=== PATIENT | male | born 1940 | race Caucasian/White ===

== ENCOUNTER 2020-01-02 03:23 | Emergency (ER) | payer MEDICARE ==
[~2020-01-02] VITALS: Ht 177.8 cm; Wt 107.0 kg
[~2020-01-02 03:23] MED LIST: CALC-793 PO; COU5T PO; ENOX100D5 SQ; FURO40TA4 PO; LOSA25TA96 PO; MAGN400C PO; METO-539 PO; MULT-1179 PO; NITR0.4T51 SL; OMEG500C3 PO; POTA-82 PO; ZAR5T PO; glucosamine
[2020-01-02] MEDS ORDERED: ASPI-1265 PO (03:46)
[2020-01-02] MEDS ORDERED: DIGO125T PO (03:46)
[2020-01-02] MEDS ORDERED: SYN0.088T PO (03:48)
[2020-01-02] MEDS ORDERED: normal saline 1000ML IV soln IVB ONE ×3 (03:50→05:45)
[2020-01-02] MEDS ORDERED: digoxin 250mcg/ml 2ml ampule IV ONE (03:50)
[2020-01-02] MEDS ORDERED: LIDOcaine 2% 10ml TOPICAL JELLY (Urojet) MM ONE (03:55)
--- NOTE | 2020-01-02 03:56 | NUR ---
DR. JOHN REQUESTS SERRATO CATHETER TO BE REPLACED. ORDERS TO STOP TO DOBUTAMINE INFUSING FROM [facility]SPORT. BOLUS OF 2000 ML ORDERED. ALSOR REQUEST TO CALL [facility] ER TO SEE IF KAYEXALATE GIVEN HE HAS SPECIFICALLY REQUESTED THIS OF THEIR TRANSFERING MD. NO HISTORY IN CHART OF THIS BEING GIVEN. PT IS ORIENTED AND APPROPRIATE.
[2020-01-02] MEDS ORDERED: dextrose 50%-water 50ml dispensing syringe IV ONE (04:05)
[2020-01-02 04:06] LABS: BASOPHILS % (AUTO) 0.2 % (0-1); EOSINOPHILS # (AUTO) 0.4 X10'3 (0-0.9); EOSINOPHILS % (AUTO) 3.4 % (0-6); HEMATOCRIT 47.4 % (42.0-52.0); HEMOGLOBIN 15.5 g/dl (14.0-17.9); LYMPHOCYTES # (AUTO) 0.2 X10'3 (1.1-4.8); LYMPHOCYTES % (AUTO) 1.7 % (21-51); MEAN CORPUSCULAR HEMOGLOBIN 30.9 PG (27.0-31.0); MEAN CORPUSCULAR HGB CONC 32.7 g/dL (33.0-36.5); MEAN CORPUSCULAR VOLUME 94.7 FL (78-98); MEAN PLATELET VOLUME 9.2 FL (7.4-10.4); MONOCYTES # (AUTO) 0.3 X10'3 (0-0.9); MONOCYTES % (AUTO) 3.1 % (2-12); NEUTROPHILS # (AUTO) 9.7 X10'3 (1.8-7.7); NEUTROPHILS % (AUTO) 91.6 % (42-75); PLATELET COUNT 110 X10'3 (140-440); RED CELL DISTRIBUTION WIDTH 16.7 % (11.5-14.5); WHITE BLOOD COUNT 10.6 X10'3 (4.5-11.0)
[2020-01-02 04:14] LABS: ALANINE AMINOTRANSFERASE 10 U/L (12-78); ALBUMIN 2.8 G/DL (3.4-5.0); ALKALINE PHOSPHATASE 73 IU/L (46-116); ANION GAP 14 (8-16); ASPARTATE AMINO TRANSFERASE 82 U/L (10-37); BILIRUBIN,TOTAL 6.4 MG/DL (0.1-1.0); BLOOD UREA NITROGEN 72 MG/DL (7-18); BUN/CREATININE RATIO 19.7 (5.4-32.0); CHLORIDE 99 MMOL/L (99-107); CREATININE 3.65 MG/DL (0.60-1.10); GLUCOSE 80 MG/DL (70-104); POTASSIUM 5.8 MMOL/L (3.5-5.1); SODIUM 134 MMOL/L (135-145); TOTAL CARBON DIOXIDE 20.9 MMOL/L (24-32); eGFR 16 ML/MIN
[2020-01-02] MEDS: sodium polystyrene sulfonate 15gm/60ml oral suspension PO ONE ×2 (04:15→04:46)
[2020-01-02 04:16] LABS: MAGNESIUM 2.6 MG/DL (1.5-2.4)
[2020-01-02] MEDS ORDERED: ondansetron/PF 4mg/2ml inj IV ONE (04:20)
[2020-01-02 04:30] LABS: CREATINE KINASE 678 U/L (39-308)
[2020-01-02 04:33] LABS: ANISOCYTOSIS 1+; PLATELET ESTIMATE DECREASED; TOTAL CELLS COUNTED 100
[2020-01-02 04:34] LABS: ALBUMIN/GLOBULIN RATIO 0.7 (1.1-1.5); TOTAL PROTEIN 6.9 G/DL (6.4-8.2)
--- NOTE | 2020-01-02 04:36 | NUR ---
Pt had brief episode of ALOC and cyanosis after administration of digoxin. MD notified. Colby remy applied due to persistent low temp reading via olson thermometer
[2020-01-02] MEDS ORDERED: normal saline 1000ml 1,000 ML IV ONE (04:37)
[2020-01-02] MEDS ORDERED: CefTRIAXone/D5W-Rocephin 1gm 50 ML IV SCH ×2 (04:55→08:00)
[2020-01-02] MEDS ORDERED: normal saline 1000ml 1,000 ML IV SCH (05:14)
--- NOTE | 2020-01-02 05:14 | NUR ---
Kexalate not given at [facility], this is noted in the chart. dr pritchard aware. Addendum: 01/02/20 at 0518 by ELAYNE correction, [facility], NOT [facility]
[2020-01-02] MEDS ORDERED: MESSAGE TO PHARMACY PO ONE (05:15)
[2020-01-02] MEDS ORDERED: K, MAG and/or Phos replacement - Verify level? MC SCH (05:15)
[2020-01-02] MEDS ORDERED: ondansetron/PF 4mg/2ml inj IV PRN (05:15)
[2020-01-02] MEDS ORDERED: insulin Lispro (HumaLOG) vial - multi-dose SQ SCH (05:15)
[2020-01-02] MEDS ORDERED: morphine 2 MG/ML inj. syringe IV PRN (05:15)
[2020-01-02] MEDS ORDERED: glucagon, human recombinant 1mg kit SUBCUT PRN (05:15)
[2020-01-02] MEDS ORDERED: potassium CL 10mEq/100ml bag 100 ML IV PRN ×2 (05:15)
[2020-01-02] MEDS ORDERED: dextrose 50%-water 50ml dispensing syringe IV PRN ×2 (05:15)
[2020-01-02] MEDS ORDERED: acetaminophen 325mg tablet PO PRN ×2 (05:15)
[2020-01-02] MEDS ORDERED: morphine 4 MG/ML inj SYRINge IV PRN (05:15)
[2020-01-02] MEDS ORDERED: potassium Cl 20 mEq SR tablet PO PRN ×2 (05:15)
[2020-01-02] MEDS ORDERED: dextrose ORAL solution 15 GM/59 ML bottle PO PRN ×2 (05:15)
[2020-01-02 06:15] VITALS: BP 113/87
--- NOTE | 2020-01-02 06:26 | NUR ---
Pt evaluated by Jeancarlos Bell just prior to 6 am and myself and RN Cap at bedside and Pt noted to be unresponsive. Dr. Murphy to bedside and shorlty after Pt went into vfib. Code started. See code sheet.
--- NOTE | 2020-01-02 06:35 | NUR ---
dr. pritchard calling family now.
--- NOTE | 2020-01-02 07:05 | NUR ---
spoke with pt's family Justin and Audra. Son and daughter. they have been given the list of mortuaries and are aware of the process. MD Michel spoke with Justin on the phone prior to my talk with them. called [facility] and spoke with Karlene and informed her of the need to talk with the calculus tutor. [employer] will call me back. will call [facility].
[2020-01-02] MEDS ORDERED: pantoprazole 40mg Tablet.DR PO SCH (07:30)
--- NOTE | 2020-01-02 07:36 | NUR ---
Catrina Adames from [facility] states the pt is a donor candidate and the reference number is [id number]. informed Audra (daughter)
[2020-01-02] MEDS ORDERED: magnesium oxide 400mg tablet PO SCH (08:00)
[2020-01-02] MEDS ORDERED: aspirin 81mg tab.chew PO SCH (08:00)
[2020-01-02] MEDS ORDERED: etomidate 2mg/ml inj. ONE (08:00)
[2020-01-02] MEDS ORDERED: losartan 25mg tablet PO SCH (08:00)
[2020-01-02] MEDS ORDERED: levoTHYROXINE 88mcg tablet PO SCH (08:00)
[2020-01-02] MEDS ORDERED: calcium carbonate/vitamin D3 tablet PO SCH (08:00)
[2020-01-02] MEDS ORDERED: rocuronium 10mg/ml inj IV ONE (08:00)
[2020-01-02] MEDS ORDERED: digoxin 125mcg (0.125mg) tablet PO SCH (08:00)
--- NOTE | 2020-01-02 09:36 | NUR ---
[facility] [phone] and called them and talked with howard there. she is going to contact the pt's family. informed Audra she will be contacted by the mortuary.
--- NOTE | 2020-01-02 10:15 | NUR ---
pt has been picked up by [facility] from [facility]. informed pt's daughter Audra about the progress.
[2020-01-02] MEDS ORDERED: CefTRIAXone 2gm/D5W 50ml 50 ML IV SCH (12:00)
[2020-01-02] MEDS ORDERED: insulin glargine (Lantus) pen - multi-dose SQ SCH (21:00)
[2020-01-02] MEDS ORDERED: warfarin 5mg tablet PO SCH (21:00)
== END 2020-01-02 10:15 | disposition expired ==
LOC: ER 03:23 → UNDOADMIN 05:14 → ED HOLD 05:14 → UNDODISIN 11:59
DX: I21.4 Non-ST elevation (NSTEMI) myocardial infarction (principal); N17.9 Acute kidney failure, unspecified; I48.91 Unspecified atrial fibrillation; D72.825 Bandemia; E86.0 Dehydration; E87.5 Hyperkalemia; I25.10 Atherosclerotic heart disease of native coronary artery without angina pectoris; I50.9 Heart failure, unspecified; I46.9 Cardiac arrest, cause unspecified; R09.02 Hypoxemia; I25.2 Old myocardial infarction; Z87.891 Personal history of nicotine dependence; Z86.73 Personal history of transient ischemic attack (TIA), and cerebral infarction without residual deficits; Z88.8 Allergy status to other drugs, medicaments and biological substances; Z88.1 Allergy status to other antibiotic agents
CPT/HCPCS: 31500; 36415; 71045; 80053; 80162; 82550; 82948; 83036; 83605; 83735; 84443; 84484; 85025; 85610; 87040; 87077; 87186; 92950; 93005; 94002; 96361; 96365; 96375; 99291; J0696; J1160; J1815; J2405; J7030; 96374; G0378